=== PATIENT | female | born 1990 | race Caucasian/White ===

== ENCOUNTER 2018-01-20 14:33 | Emergency (ER) | payer MEDICAID ==
[~2018-01-20] VITALS: Ht 175.3 cm; Wt 77.3 kg
[2018-01-20 14:37] VITALS: BP 141/89
[2018-01-20] MEDS ORDERED: BUPIVAcaine/PF 2.5 mg/ml (0.25%) 30ml vial IJ ONE (14:55)
[2018-01-20] MEDS ORDERED: BUPIVAcaine/PF 7.5mg/ml (0.75%) 10ml vial IJ ONE (15:05)
[2018-01-20] MEDS ORDERED: clindamycin 150mg capsule PO ONE (15:25)
[2018-01-20] MEDS ORDERED: CLIN150C2 PO (15:25)
== END 2018-01-20 15:39 | disposition home or self-care (01) ==
LOC: ER 14:34
DX: K04.7 Periapical abscess without sinus (principal); Z88.1 Allergy status to other antibiotic agents; Z79.899 Other long term (current) drug therapy
CPT/HCPCS: 41800; 99283; A6449; J3490

== ENCOUNTER 2021-02-20 11:54 | Emergency (ER) | payer MEDICAID ==
[~2021-02-20] VITALS: Ht 175.3 cm; Wt 84.0 kg
[2021-02-20 12:24] VITALS: BP 138/77
[2021-02-20] MEDS ORDERED: CLIN-97 PO (12:34)
[2021-02-20] MEDS ORDERED: HYDR-3972 PO (12:35)
== END 2021-02-20 13:04 | disposition home or self-care (01) ==
LOC: ER 11:55
DX: K02.9 Dental caries, unspecified (principal); K08.89 Other specified disorders of teeth and supporting structures; F17.200 Nicotine dependence, unspecified, uncomplicated; Z88.0 Allergy status to penicillin; Z79.2 Long term (current) use of antibiotics; Z72.89 Other problems related to lifestyle
CPT/HCPCS: 99283

== ENCOUNTER 2022-10-24 16:59 | Emergency (ER) | payer MEDICAID ==
[~2022-10-24] VITALS: Ht 175.3 cm; Wt 115.2 kg
[~2022-10-24 16:59] MED LIST: CLIN-97 PO
[2022-10-24 18:34] VITALS: BP 139/91
[2022-10-24] MEDS ORDERED: CLIN150C8 PO (18:48)
== END 2022-10-24 19:04 | disposition home or self-care (01) ==
LOC: ER 16:59
DX: K08.89 Other specified disorders of teeth and supporting structures (principal); Z88.1 Allergy status to other antibiotic agents; Z79.899 Other long term (current) drug therapy
CPT/HCPCS: 99283

== ENCOUNTER 2022-10-31 11:04 | Emergency (ER) | payer MEDICAID ==
[~2022-10-31] VITALS: Ht 175.3 cm; Wt 114.8 kg
[~2022-10-31 11:04] MED LIST changes: +CLIN150C8 PO
[2022-10-31 11:48] VITALS: BP 162/95
[2022-10-31] MEDS ORDERED: CLIN300C70 PO (12:08)
== END 2022-10-31 12:18 | disposition home or self-care (01) ==
LOC: ER 11:05
DX: K04.7 Periapical abscess without sinus (principal); Z88.1 Allergy status to other antibiotic agents; Z79.899 Other long term (current) drug therapy; Z88.0 Allergy status to penicillin
CPT/HCPCS: 99283

== ENCOUNTER 2025-06-23 22:53 | Emergency (ER) | payer MEDICAID ==
[~2025-06-23] VITALS: Ht 175.3 cm; Wt 78.0 kg
[~2025-06-23 22:53] MED LIST changes: +CLIN-214 PO; +CLIN-224 PO; -CLIN-97 PO; -CLIN150C8 PO
[2025-06-23 23:06] VITALS: BP 169/85; PULSE 78; RESP 16; O2SAT 98
--- NOTE | 2025-06-23 23:26 | Physician Documentation ---
HPI ~ General Chief Complaint: Tooth Problem Stated Complaint: DENTAL INFECTION Time Seen by MD: 23:25 Primary Medical Doctor: Noemy History of Present Illness HPI Comment Patient presents to the emergency room with swelling to her right face. She had a root canal a few days ago was in placed on clindamycin in his still has an additional four tablets left. She reports compliance. She noticed some swelling to the right side of her face this morning that has only gotten worse. No fevers Medication Reconciliation Allergies: Coded Allergies: Penicillins (Verified Allergy, Unknown, 06/23/25) amoxicillin (Verified Allergy, Unknown, 06/23/25) Scheduled Clindamycin HCL* (Clindamycin HCL*), 1 CAP PO QID Clindamycin HCl (Clindamycin HCl CAPSULE), 2 CAP PO TID Past Medical History Past Medical History: No Pertinent History Past Surgical History: noncontributory Alcohol Use: Occasionally Drug Use: none Lives In: Home Occupation: employed Review of Systems ROS All review of systems negative except as per HPI Physical Exam Vital Signs: Temperature: 96.9, Source: Temporal, Heart Rate: 78, Respiratory Rate: 16, BP: 169/85, Pulse Oximetry: 98, Weight: 78.000 Physical Exam General: Patient is awake, alert, oriented x4 in no acute distress Head: Normocephalic and atraumatic. Eyes: Conjunctival normal. EOMI. PERRL. ENT: Mucous membranes moist. No abscess appreciated. Noted swelling to patient's right side of her face. No cellulitis Neck: Supple, trachea is midline. Chest: Clear to auscultation bilaterally without rales, rhonchi, or wheezes. There is no accessory muscle use or retractions. Cardiac: RRR without murmurs, gallops, or rubs. Progress Results/Orders Results/Orders Completed Orders - GIO OSULLIVAN MD Ceftriaxone Im Kit W/Lidocaine (Rocephin (06/23/25 23:35) Ondansetron Disint. Tablet (Zofran Odt T (06/23/25 23:35) Metronidazole Tablet (Flagyl Tablet) (06/23/25 23:35) Levofloxacin 750mg Tablet (Levaquin 750m (06/23/25 23:35) Vital Signs 06/23/25 06/23/25 23:06 23:40 Temp 96.9 96.9 Pulse 78 Resp 16 B/P (MAP) 169/85 Pulse Ox 98 Medical Decision Making Additional information obtaine: N/A Findings Patient presents to the emergency room with swelling to the right side of her face as per HPI. Differentials include but are not limited to abscess, deep tissue infection, postprocedure edema, cellulitis. No appreciable cellulitis or abscess. Patient is nontoxic appearing he had not feel emergent labs or imaging is necessary. I have consulted with up-to-date and we will treat with different course of antibiotics with strict instructions for the patient to follow up with her dentist tomorrow as it is Friday. Differential Dx:Considerations: Include: Alveolar fracture, Alveolar osteitis, ANUG, Facial Cellulitis, Periapical abscess, Peridontal abscess, Post-extraction bleeding, Pulpitis, Tooth avulsion, Tooth eruption, Tooth Fracture, Trigeminal neuralgia, Tooth subluxation, Other Departure Disposition: HOME / SELF CARE / HOMELESS Impression: Primary Impression: Dental infection Condition: Stable Discharge Instructions: Dental Pain Additional Instructions: Follow up with your dentist tomorrow as it is Friday. Referrals: NO PRIMARY CARE PROVIDER (PCP) Prescriptions Levofloxacin (Levofloxacin) 500 Mg Tablet 1 TAB PO DAILY for 7 Days, #7 TAB Prov: GIO OSULLIVAN MD 06/23/25 Metronidazole* (Flagyl*) 500 Mg Tablet 1 TAB PO Q12H for 7 Days, #14 TAB Prov: GIO OSULLIVAN MD 06/23/25 Signature Scribe Signature: No scribe Attestation: The note accurately reflects work and decisions made by me.Gio Osullivan MD 06/23/25 23:45 GIO OSULLIVAN MD Jun 23, 2025 23:26
[2025-06-23 23:40] VITALS: TEMP 96.9
[2025-06-23] MEDS ORDERED: LEVO-65 PO (23:45)
[2025-06-23] MEDS ORDERED: METR-159 PO (23:45)
[2025-06-23] MEDS: CefTRIAXone 1000mg IM Kit (w/lidocaine diluent) IM ONE (23:49)
[2025-06-23] MEDS: ondansetron 4mg rapidly disintigrating tab PO ONE (23:49)
[2025-06-23] MEDS: levoFLOXACIN 750MG TABLET PO ONE (23:49)
== END 2025-06-23 23:59 | disposition home or self-care (01) ==
LOC: ER 22:53
DX: K04.7 Periapical abscess without sinus (principal); Z88.0 Allergy status to penicillin
CPT/HCPCS: 96372; 99284; J0696